=== PATIENT | male | born 1980 | race Caucasian/White ===

== ENCOUNTER 2017-06-11 02:13 | Emergency (ER) | payer MEDICAID ==
[~2017-06-11] VITALS: Ht 170.2 cm; Wt 68.0 kg
[2017-06-11] VITALS (24 sets, daily range): BP systolic 112–139; BP diastolic 56–83
[2017-06-11] MEDS ORDERED: LORazepam Inj 2mg/ml 1ml IV ONE (03:00)
[2017-06-11] MEDS ORDERED: Tubing IV Cassette IV ONE (03:05)
[2017-06-11 03:16] LABS: EOSINOPHILS % (AUTO) 1.5 % (0.0-3.0); HEMATOCRIT 44.1 % (42.0-52.0); HEMOGLOBIN 15.4 G/DL (14.2-18.0); LYMPHOCYTES % (AUTO) 15.8 % (20.0-45.0); MEAN CORPUSCULAR VOLUME 90 FL (80-99); NEUTROPHILS % (AUTO) 74.8 % (45.0-75.0); PLATELET COUNT 409 K/UL (150-450); RED BLOOD COUNT 4.89 M/UL (4.70-6.10); RED CELL DISTRIBUTION WIDTH 10.9 % (11.6-14.8); WHITE BLOOD COUNT 12.8 K/UL (4.8-10.8)
[2017-06-11 03:21] LABS: ANION GAP 6 mmol/L (5-15); BLOOD UREA NITROGEN 18 mg/dL (7-18); CALCIUM 8.8 MG/DL (8.5-10.1); CARBON DIOXIDE 33 MMOL/L (21-32); CHLORIDE 101 MMOL/L (98-107); POTASSIUM 3.6 MMOL/L (3.5-5.1); SODIUM 140 MMOL/L (136-145)
[2017-06-11 03:25] LABS: ALANINE AMINOTRANSFERASE 82 U/L (12-78); ALBUMIN 3.4 G/DL (3.4-5.0); ALBUMIN/GLOBULIN RATIO 0.9 (1.0-2.7); ALKALINE PHOSPHATASE 69 U/L (46-116); ASPARTATE AMINO TRANSFERASE 39 U/L (15-37); BILIRUBIN,TOTAL 0.3 MG/DL (0.2-1.0)
--- NOTE | 2017-06-11 06:22 | Emergency Room Report ---
History of Present Illness General Chief Complaint: Overdose Source: Patient Present Illness HPI 37-year-old male presents ED for evaluation. Patient brought in by EMS. States that patient took multiple pills of wellbutrin last night. [employer] on scene. States that patient admitted to trying to hurt himself. Patient was just discharged from a psych facility earlier today. Patient states he does feel sad and wants to hurt himself. Denies any abdominal pain. Denies any nausea or vomiting. Denies chest pain or shortness of breath. No other aggravating or relieving factors. Denies any other associated symptoms Allergies: Coded Allergies: No Known Allergies (Unverified , 06/11/17) Patient History Past Medical History: psych hx Pertinent Family History: none Social History: Denies: smoking, alcohol use, drug use Immunizations: UTD Reviewed Nursing Documentation: PMH: Agreed, PSxH: Agreed Nursing Documentation-PMH History Of Psychiatric Problem: Yes - Schizo-effective, Bipolar Review of Systems All Other Systems: negative except mentioned in HPI Physical Exam Vital Signs Date Time Temp Pulse Resp B/P (MAP) Pulse Ox O2 Delivery O2 Flow Rate FiO2 06/11/17 02:12 98.0 137 18 138/82 98 Room Air 98.1 Sp02 EP Interpretation: reviewed, normal General Appearance: no apparent distress, alert, GCS 15, non-toxic Head: normocephalic, atraumatic Eyes: bilateral eye normal inspection, bilateral eye PERRL ENT: hearing grossly normal, normal pharynx, no angioedema, normal voice Neck: full range of motion, supple/symm/no masses Respiratory: chest non-tender, lungs clear, normal breath sounds, speaking full sentences Cardiovascular #1: regular rate, rhythm, no edema Cardiovascular #2: 2+ carotid (R), 2+ carotid (L), 2+ radial (R), 2+ radial (L) , 2+ dorsalis pedis (R), 2+ dorsalis pedis (L) Gastrointestinal: normal bowel sounds, non tender, soft, non-distended, no guarding, no rebound Rectal: deferred Genitourinary: normal inspection, no CVA tenderness Musculoskeletal: back normal, gait/station normal, normal range of motion, non- tender Neurologic: alert, oriented x3, responsive, motor strength/tone normal, sensory intact, speech normal Psychiatric: judgement/insight normal, memory normal, depressed affect, anxious Reflexes: 3+ bicep (R), 3+ bicep (L), 3+ tricep (R), 3+ tricep (L), 3+ knee (R) , 3+ knee (L) Skin: normal color, no rash, warm/dry, well hydrated Lymphatic: no adenopathy Medical Decision Making Diagnostic Impression: Primary Impression: Drug overdose Qualified Codes: T50.902A - Poisoning by unspecified drugs, medicaments and biological substances, intentional self-harm, initial encounter ER Course Hospital Course 37-year-old male presents ED status post overdose on medication. On 5150 hold Differential diagnoses include: Major depressive disorder, unspecified psychosis , EtOH abuse, drug abuse Clinical course Patient placed on stretcher. On one to one observation. After initial history and physical I ordered labs, U. tox, ativan Labs-electrolytes normal, aspirin/Tylenol levels normal, EtOH level normal, U. tox negative Patient remains vital stable on cardiac rehabilitation program director Patient is medically cleared and pending psychiatric evaluation. i. I feel this is a highly complex case requiring extensive working including EKG/Rhythm strip, Xray/CT/US, Blood/urine lab work, repeat exams while in ED, and administration of strong opiates/narcotics for pain control, admission to hospital or close patient follow up. Labs Test 06/11/17 02:50 06/11/17 03:50 White Blood Count 12.8 K/UL (4.8-10.8) Red Blood Count 4.89 M/UL (4.70-6.10) Hemoglobin 15.4 G/DL (14.2-18.0) Hematocrit 44.1 % (42.0-52.0) Mean Corpuscular Volume 90 FL (80-99) Mean Corpuscular Hemoglobin 31.4 PG (27.0-31.0) Mean Corpuscular Hemoglobin Concent 34.9 G/DL (32.0-36.0) Red Cell Distribution Width 10.9 % (11.6-14.8) Platelet Count 409 K/UL (150-450) Mean Platelet Volume 6.8 FL (6.5-10.1) Neutrophils (%) (Auto) 74.8 % (45.0-75.0) Lymphocytes (%) (Auto) 15.8 % (20.0-45.0) Monocytes (%) (Auto) 7.0 % (1.0-10.0) Eosinophils (%) (Auto) 1.5 % (0.0-3.0) Basophils (%) (Auto) 1.0 % (0.0-2.0) Sodium Level 140 MMOL/L (136-145) Potassium Level 3.6 MMOL/L (3.5-5.1) Chloride Level 101 MMOL/L (98-107) Carbon Dioxide Level 33 MMOL/L (21-32) Anion Gap 6 mmol/L (5-15) Blood Urea Nitrogen 18 mg/dL (7-18) Creatinine 1.0 MG/DL (0.55-1.30) Estimat Glomerular Filtration Rate > 60 mL/min (>60) Glucose Level 115 MG/DL (74-106) Calcium Level 8.8 MG/DL (8.5-10.1) Total Bilirubin 0.3 MG/DL (0.2-1.0) Aspartate Amino Transf (AST/SGOT) 39 U/L (15-37) Alanine Aminotransferase (ALT/SGPT) 82 U/L (12-78) Alkaline Phosphatase 69 U/L (46-116) Total Protein 7.2 G/DL (6.4-8.2) Albumin 3.4 G/DL (3.4-5.0) Globulin 3.8 g/dL Albumin/Globulin Ratio 0.9 (1.0-2.7) Salicylates Level 1.8 ug/mL (2.8-20) Acetaminophen Level < 2 MCG/ML (10-30) Serum Alcohol < 3 mg/dL Urine Opiates Screen Negative (NEGATIVE) Urine Barbiturates Screen Negative (NEGATIVE) Phencyclidine (PCP) Screen Negative (NEGATIVE) Urine Amphetamines Screen Negative (NEGATIVE) Urine Benzodiazepines Screen Negative (NEGATIVE) Urine Cocaine Screen Negative (NEGATIVE) Urine Marijuana (THC) Screen Negative (NEGATIVE) Last Vital Signs Date Time Temp Pulse Resp B/P (MAP) Pulse Ox O2 Delivery O2 Flow Rate FiO2 06/11/17 05:59 97.3 102 19 100 Room Air 06/11/17 05:59 125/77 Status: improved Disposition: XFER TO PSYCH HOSP/UNIT Condition: Serious Referrals: NON PHYSICIAN (PCP) SELENA ALEMAN M.D. Jun 11, 2017 06:22
--- NOTE | 2017-06-11 21:48 | Consultation ---
History of Present Illness General Date patient seen: Jun 11, 2017 Chief Complaint: Overdose Present Illness HPI 37-year-old male presents ED for evaluation. Patient brought in by EMS. States that patient took multiple pills of Wellbutrin last night. the pt stated that he has used meth therefore he reece on Wellbutrin. the pt stabilized and is motivated to go to rehab. the pts workplace rehabilitation officer was called and notified Allergies: Coded Allergies: No Known Allergies (Unverified , 06/11/17) Patient History Healthcare decision maker Resuscitation status Advanced Directive on File Physical Exam Last 24 Hour Vital Signs Date Time Temp Pulse Resp B/P (MAP) Pulse Ox O2 Delivery O2 Flow Rate FiO2 06/11/17 12:02 98.0 86 18 123/75 99 Room Air 06/11/17 11:47 86 18 123/75 99 Room Air 06/11/17 07:59 89 18 129/70 99 Room Air 06/11/17 07:59 90 17 99 Room Air 06/11/17 07:44 89 18 99 Room Air 06/11/17 07:29 97.4 98 18 98 Room Air 06/11/17 07:14 97.4 98 18 98 Room Air 06/11/17 06:59 97.4 98 20 98 Room Air 06/11/17 06:59 97.4 98 20 132/72 98 Room Air 97.4 06/11/17 06:44 97.4 97 20 97 Room Air 06/11/17 06:44 97.4 97 20 134/76 97 Room Air 97.4 06/11/17 06:29 95 18 132/75 98 Room Air 06/11/17 06:29 97.3 95 18 98 Room Air 06/11/17 06:14 97.3 97 20 99 Room Air 06/11/17 06:14 97 20 133/77 99 Room Air 06/11/17 05:59 97.3 102 19 100 Room Air 06/11/17 05:59 102 19 125/77 100 Room Air 06/11/17 05:44 97.3 97 19 100 Room Air 06/11/17 05:44 97 19 125/77 100 Room Air 06/11/17 05:29 97.3 111 22 136/83 98 Room Air 97.3 06/11/17 05:29 97.3 111 22 98 Room Air 06/11/17 05:14 97.2 113 23 98 Room Air 06/11/17 05:14 113 23 139/77 98 Room Air 06/11/17 04:59 97.2 115 23 99 Room Air 06/11/17 04:59 115 23 128/77 99 Room Air 06/11/17 04:44 97.2 104 21 127/82 99 Room Air 97.2 06/11/17 04:44 97.2 104 21 99 Room Air 06/11/17 04:29 97.2 107 22 98 Room Air 06/11/17 04:29 97.2 107 22 112/56 98 Room Air 97.2 06/11/17 04:14 97.2 110 22 117/63 99 Room Air 97.2 06/11/17 04:14 97.2 110 22 99 Room Air 06/11/17 03:59 97.9 109 21 99 Room Air 06/11/17 03:59 109 21 123/65 99 Room Air 06/11/17 03:44 97.9 111 20 100 Room Air 06/11/17 03:44 111 20 127/62 100 Room Air 06/11/17 03:29 115 24 124/72 96 Room Air 06/11/17 03:29 97.9 115 24 96 Room Air 06/11/17 03:14 97.9 116 24 130/79 97 Room Air 97.9 06/11/17 03:14 97.9 112 24 97 Room Air 06/11/17 02:59 97.9 112 19 123/70 97 Room Air 97.9 06/11/17 02:59 112 19 97 Room Air 06/11/17 02:15 137 18 Room Air 06/11/17 02:12 98.0 137 18 138/82 98 Room Air 98.1 Intake and Output 06/10/17 06/11/17 19:00 07:00 Intake Total 1000 ml Output Total 250 ml Balance 750 ml Intake IV Total 1000 ml Output Urine Total 250 ml # Voids 1 Laboratory Tests Test 06/11/17 02:50 06/11/17 03:50 White Blood Count 12.8 K/UL (4.8-10.8) H Red Blood Count 4.89 M/UL (4.70-6.10) Hemoglobin 15.4 G/DL (14.2-18.0) Hematocrit 44.1 % (42.0-52.0) Mean Corpuscular Volume 90 FL (80-99) Mean Corpuscular Hemoglobin 31.4 PG (27.0-31.0) H Mean Corpuscular Hemoglobin Concent 34.9 G/DL (32.0-36.0) Red Cell Distribution Width 10.9 % (11.6-14.8) L Platelet Count 409 K/UL (150-450) Mean Platelet Volume 6.8 FL (6.5-10.1) Neutrophils (%) (Auto) 74.8 % (45.0-75.0) Lymphocytes (%) (Auto) 15.8 % (20.0-45.0) L Monocytes (%) (Auto) 7.0 % (1.0-10.0) Eosinophils (%) (Auto) 1.5 % (0.0-3.0) Basophils (%) (Auto) 1.0 % (0.0-2.0) Sodium Level 140 MMOL/L (136-145) Potassium Level 3.6 MMOL/L (3.5-5.1) Chloride Level 101 MMOL/L (98-107) Carbon Dioxide Level 33 MMOL/L (21-32) H Anion Gap 6 mmol/L (5-15) Blood Urea Nitrogen 18 mg/dL (7-18) Creatinine 1.0 MG/DL (0.55-1.30) Estimat Glomerular Filtration Rate > 60 mL/min (>60) Glucose Level 115 MG/DL (74-106) H Calcium Level 8.8 MG/DL (8.5-10.1) Total Bilirubin 0.3 MG/DL (0.2-1.0) Aspartate Amino Transf (AST/SGOT) 39 U/L (15-37) H Alanine Aminotransferase (ALT/SGPT) 82 U/L (12-78) H Alkaline Phosphatase 69 U/L (46-116) Total Protein 7.2 G/DL (6.4-8.2) Albumin 3.4 G/DL (3.4-5.0) Globulin 3.8 g/dL Albumin/Globulin Ratio 0.9 (1.0-2.7) L Salicylates Level 1.8 ug/mL (2.8-20) L Acetaminophen Level < 2 MCG/ML (10-30) L Serum Alcohol < 3 mg/dL Urine Opiates Screen Negative (NEGATIVE) Urine Barbiturates Screen Negative (NEGATIVE) Phencyclidine (PCP) Screen Negative (NEGATIVE) Urine Amphetamines Screen Negative (NEGATIVE) Urine Benzodiazepines Screen Negative (NEGATIVE) Urine Cocaine Screen Negative (NEGATIVE) Urine Marijuana (THC) Screen Negative (NEGATIVE) Height (Feet): 5 Height (Inches): 7.00 Weight (Pounds): 150 Assessment/Plan Assessment/Plan the pt is not a dts monica traylor the hold and dc to outpt level of care Carmen Horne M.D. Jun 11, 2017 21:48
== END 2017-06-11 12:08 | disposition home or self-care (01) ==
LOC: EDBD 02:13 → EMR 02:45 → EDUNIT# 02:45 → EMR 12:08
DX: T43.292A Poisoning by other antidepressants, intentional self-harm, initial encounter (principal); Y92.009 Unspecified place in unspecified non-institutional (private) residence as the place of occurrence of the external cause; F25.0 Schizoaffective disorder, bipolar type
CPT/HCPCS: 36415; 80053; 80307; 80329; 85025; 96361; 96374; 99285